=== PATIENT | male | born 2000 | race Caucasian/White ===

== ENCOUNTER 2025-07-04 14:57 | Emergency (ER) | payer SELFPAY ==
[~2025-07-04] VITALS: Ht 172.7 cm; Wt 62.8 kg
[2025-07-04 14:59] VITALS: BP 126/85; PULSE 106; RESP 16; O2SAT 97
[2025-07-04 16:30] LABS: MEAN PLATELET VOLUME 8.5 FL (7.4-10.4); RED CELL DISTRIBUTION WIDTH 14.1 % (11.5-14.5)
[2025-07-04 16:41] LABS: LEUKOCYTE ESTERASE ,URINE NEGATIVE (Neg); NITRITES, URINE NEGATIVE (Neg); OCCULT BLOOD,URINE NEGATIVE (Neg)
[2025-07-04 16:47] LABS: UA COLLECTION TYPE CLN CATCH MIDSTREAM
[2025-07-04 16:53] LABS: CREATININE 1.10 MG/DL (0.60-1.10); ETHANOL < 10 MG/DL (<10); TOTAL CARBON DIOXIDE 30.4 MMOL/L (24-32); eCRCL 93 ML/MIN; eGFR 83 ML/MIN
[2025-07-04 16:56] LABS: URINE AMPHETAMINE SCREEN NEGATIVE (Neg); URINE BARBITUATE SCREEN NEGATIVE (Neg); URINE BENZODIAZEPINES SCREEN NEGATIVE (Neg); URINE CANNABINOID SCREEN POSITIVE (Neg); URINE COCAINE SCREEN NEGATIVE (Neg); URINE METHADONE SCREEN NEGATIVE (Neg); URINE OPIATE SCREEN NEGATIVE (Neg); URINE PHENCYCLIDINE SCREEN NEGATIVE (Neg)
--- NOTE | 2025-07-04 17:27 | Physician Documentation ---
History of Present Illness ~ Chief Complaint: Suicidal Ideation Stated Complaint: INGESTION ERROR Time Seen by MD: 15:11 HPI 25-year-old male who presents with reportedly ingesting battery acid. When I speak to the patient, he tells me that for the past 6 weeks he has been taking for double a batteries every day, "opening them up, and drinking the battery acid." When asked him if he is trying to hurt himself, he states that he had had some thoughts in the past of hurting himself, but currently denies any thoughts of self-harm or suicidal ideation. When asked him why he is drinking battery acid, he tells me because his brother 6 weeks ago. He denies any other ingestion or physical self-harm. He denies any significant pain in his mouth, tongue, or throat. No difficulty swallowing. He is eating and drinking okay. No abdominal pain. When I asked him how we can help him today he states I think I am good. When I asked him if he is going to drink battery acid tomorrow, he states nope, I do not think so. When asked him why, he states because I might get kicked out of my housing, and then I would have to go to residential. Medication Reconciliation Allergies: Coded Allergies: No Known Allergies (Unverified , 07/04/25) Review of Systems All Other Systems at this time: Reviewed and Negative Physical Exam Vital Signs: Temperature: 97.8, Source: Temporal, Heart Rate: 106, Respiratory Rate: 16, BP: 126/85, Pulse Oximetry: 97, Weight: 62.800 Physical Exam General: This is a thin young man sitting quietly in bed HEENT: Atraumatic, oropharynx is moist, no abnormalities to the lips, tongue, or oral mucosa including no ulcerations or serrano, no lesions, no swelling of the posterior oropharynx. Neck: No swelling or tenderness Heart: Regular rate and rhythm at time of my evaluation, normal-appearing peripheral perfusion Lungs: normal work of breathing, normal oxygen saturation on room air Abdomen: Soft, nondistended, nontender including in the epigastric region Neuro: Alert and oriented Psychiatric: Flattened affect, speaks in a monotone voice. Denies suicidal ideation or thoughts of self-harm. Does not appear acutely intoxicated. Does not appear to be responding to internal stimuli. Progress Results/Orders Results/Orders Orders - CONNOR ANGELO MD [facility] Rec (07/04/25 16:07) Close Observation Level (07/04/25 16:07) Covid19 Binax Poc Result Entry (07/04/25 16:07) Completed Orders - CONNOR ANGELO MD Cbc/Diff (07/04/25 16:07) Urinalysis (07/04/25 16:07) Drug Screen, Urine (07/04/25 16:07) Ethanol (07/04/25 16:07) TSH (07/04/25 16:07) BMP (07/04/25 16:07) Regular Diet (07/04/25 Dinner) Vital Signs 07/04/25 07/04/25 14:59 17:43 Temp 97.8 97.8 Pulse 106 Resp 16 B/P (MAP) 126/85 Pulse Ox 97 Laboratory Tests Test 07/04/25 16:14 07/04/25 16:16 07/04/25 16:33 SARS-CoV-2 Antigen (Rapid) Negative White Blood Count 7.2 Red Blood Count 4.49 L Hemoglobin 13.6 L Hematocrit 39.6 L Mean Corpuscular Volume 88.3 Mean Corpuscular Hemoglobin 30.3 Mean Corpuscular Hemoglobin Concent 34.3 Red Cell Distribution Width 14.1 Platelet Count 327 Mean Platelet Volume 8.5 Neutrophils (%) (Auto) 70.2 Lymphocytes (%) (Auto) 18.6 L Monocytes (%) (Auto) 8.0 Eosinophils (%) (Auto) 2.1 Basophils (%) (Auto) 1.1 H Neutrophils # (Auto) 5.1 Lymphocytes # (Auto) 1.3 Monocytes # (Auto) 0.6 Eosinophils # (Auto) 0.2 Basophils # (Auto) 0.1 CBC Comment Sodium Level 139 Potassium Level 3.7 Chloride Level 101 Carbon Dioxide Level 30.4 Anion Gap 8 Blood Urea Nitrogen 11 Creatinine 1.10 Estimated GFR/1.73 m2 83 BUN/Creatinine Ratio 10.0 Glucose Level 109 H Calcium Level 8.6 Albumin 3.9 Thyroid Stimulating Hormone (TSH) 1.42 Chemistry Comments Ethyl Alcohol Level < 10 Urine Specimen Description Cln catch midstream Urine Color Yellow Urine Clarity Clear Urine pH 6.0 Urine Specific Cameron 1.020 Urine Protein Negative Urine Glucose (UA) Negative Urine Ketones Negative Urine Occult Blood Negative Urine Nitrite Negative Urine Bilirubin Negative Urine Urobilinogen 1.0 Urine Leukocyte Esterase Negative Volume Urine Centrifuged 10 ml Urine Comment Urine Opiates Screen Negative Urine Methadone Screen Negative Urine Fentanyl Screen Negative Urine Barbiturates Screen Negative Urine Phencyclidine Screen Negative Urine Amphetamines Screen Negative Urine Benzodiazepines Screen Negative Urine Cocaine Screen Negative Urine Cannabinoids Screen Positive Drug Screen Comment Medical Decision Making Differential Diagnosis The patient presents reportedly drinking battery acid every day for the past 6 weeks. However on exam, he has no evidence of oral serrano or other abnormality. It is unclear why he came to the emergency department today, denies any new or different symptoms today. He denies any suicidal ideation or thoughts of killing himself. He denies any mental health diagnosis. Mental health screening labs were ordered from triage are unremarkable. Overall, it is unclear how to help the patient today, he denies suicide ideation, does not meet criteria for a mental health hold. He has no evidence of injury to his mouth or throat, and it is unclear if he is actually ingesting batteries as he reports. As he does not meet criteria for a mental health hold, and declined any further evaluation or treatment, he will be discharged with home care instructions and return precautions. Departure Time of Disposition: 17:26 Disposition: 01 HOME / SELF CARE / HOMELESS Impression: Primary Impression: Self-inflicted injury Condition: Stable Discharge Instructions: Prolonged Grief, Suicidal Feelings: How to Help Yours elf Referrals: NO PRIMARY CARE PROVIDER (PCP) Education Educated: Patient Educated regarding: need for follow up Signature Scribe Signature: darius Attestation: CONNOR Borges MD Jul 04, 2025 17:27
[2025-07-04 17:43] VITALS: TEMP 97.8
== END 2025-07-04 17:36 | disposition home or self-care (01) ==
LOC: ER 14:58
DX: R45.851 Suicidal ideations (principal); Z20.822 Contact with and (suspected) exposure to COVID-19; Y33.XXXA Other specified events, undetermined intent, initial encounter; Y93.89 Activity, other specified; Y92.89 Other specified places as the place of occurrence of the external cause; Y99.8 Other external cause status
CPT/HCPCS: 36415; 80048; 80305; 80320; 81003; 84443; 85025; 87811; 99283